=== PATIENT | male | born 1960 | race Caucasian/White ===

== ENCOUNTER 2019-02-10 11:37 | Emergency (ER) | payer SELFPAY ==
[2019-02-10 11:57] VITALS: BP 134/76; PULSE 81
--- NOTE | 2019-02-10 12:01 | EDM.PDOC ---
ED HPI GENERAL MEDICAL PROBLEM - General Chief Complaint: Skin Complaint Stated Complaint: RIGHT HAND INFECTION Time Seen by Provider: 02/10/19 11:55 Source of Information: Reports: Patient, Old Records, RN Notes Reviewed History Limitations: Reports: No Limitations - History of Present Illness INITIAL COMMENTS - FREE TEXT/NARRATIVE: Patient is a 58-year-old male who presents to the ED for the evaluation of a swollen right hand and knuckles. Patient notes that the pain is sharp and stabbing in nature, and any touch to the hand actually hurts him. He notes that the pain radiates to his upper arm, and would rate this at a 10 out of 10. He states he has a history of a MRSA infection to his knee that started just like this. Patient states that over the last 24 hours the pain has increased. Clinically he has a mild fever at 100.4F, he is complaining of being chilled, having some nausea but no vomiting or diarrhea. He denies any chest pain or shortness of breath. 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 Patient notes that he has a history of hepatitis C, some chronic back pain issues, and shoulder surgeries. He denies any med allergies. Right Hand Pain Score (Numeric/FACES): 10 - Related Data Allergies Allergy/AdvReac Type Severity Reaction Status Date / Time No Known Allergies Allergy Verified 02/10/19 11:57 Home Meds: Home Meds oxyCODONE HCl/Acetaminophen [Percocet 5-325 mg Tablet] 1 each PO TID PRN #12 tablet 11/16/15 [Rx] Acetaminophen/oxyCODONE [Percocet 325-5 MG] 1 each PO Q6H PRN #12 tab 02/10/19 [ Rx] predniSONE 20 mg PO ASDIRECTED #15 tab 02/10/19 [Rx] Past Medical History HEENT History: Reports: Hard of Hearing, Impaired Vision Musculoskeletal History: Reports: Arthritis Psychiatric History: Reports: Addiction Hematologic History: Reports: Other (See Below) Other Hematologic History: pt states that he has Hep C - Infectious Disease History Infectious Disease History: Reports: Hepatitis C - Past Surgical History GI Surgical History: Reports: Hernia Repair/Other Musculoskeletal Surgical History: Reports: Shoulder Surgery Social & Family History - Tobacco Use Smoking Status *Q: Current Every Day Smoker Years of Tobacco use: 35 Packs/Tins Daily: 1 - Caffeine Use Caffeine Use: Reports: Coffee - Alcohol Use Days Per Week of Alcohol Use: 2 Number of Drinks Per Day: 2 Total Drinks Per Week: 4 - Recreational Drug Use Recreational Drug Use: No ED ROS GENERAL - Review of Systems Review Of Systems: See Below Constitutional: Reports: Fever, Chills HEENT: Reports: No Symptoms Respiratory: Denies: Shortness of Breath, Cough Cardiovascular: Denies: Chest Pain Endocrine: Reports: No Symptoms GI/Abdominal: Reports: No Symptoms : Reports: No Symptoms Musculoskeletal: Reports: Hand Pain (bilateral, but right hand hurts worse, swelling noted to bilteral MCPs) Skin: Denies: Wound Neurological: Denies: Numbness, Tingling Psychiatric: Reports: No Symptoms Hematologic/Lymphatic: Reports: No Symptoms Immunologic: Reports: No Symptoms ED EXAM, SKIN/RASH Exam: See Below Exam Limited By: No Limitations General Appearance: Alert, WD/WN, No Apparent Distress Eye Exam: Bilateral Eye: EOMI, Normal Inspection, PERRL Throat/Mouth: Normal Inspection, Normal Lips, Normal Teeth, Normal Gums, Normal Oropharynx, Normal Voice, No Airway Compromise Head: Atraumatic, Normocephalic Respiratory/Chest: No Respiratory Distress, Lungs Clear, Normal Breath Sounds, No Accessory Muscle Use, Chest Non-Tender Cardiovascular: Normal Peripheral Pulses, Regular Rate, Rhythm, No Murmur GI/Abdominal: Normal Bowel Sounds, Soft, Non-Tender, No Distention, No Mass Extremities: Normal Inspection (Hands are visibly soiled with dark debris, there is some swelling appreciated to the MCPs of bilateral hands, however no obvious redness noted to suggest cellulitis. Patient's hand is tender to touch , even the lightest touch provides him with pain), Normal Capillary Refill, Limited Range of Motion (d/t pain) Neurological: Alert, Oriented, Normal Cognition, No Motor/Sensory Deficits Psychiatric: Normal Affect, Normal Mood Skin: Warm, Dry, Intact, Normal Color, No Rash Course - Vital Signs Last Recorded V/S: Last Vital Signs Temp 100.4 F 02/10/19 11:52 Pulse 81 02/10/19 11:52 Resp 16 02/10/19 11:52 BP 134/76 02/10/19 11:52 Pulse Ox 93 L 02/10/19 11:52 - Orders/Labs/Meds Orders: Active Orders 24 hr Category Date Time Status Peripheral IV Care [RC] . DIRECTED Care 02/10/19 12:12 Active Sodium Chloride 0.9% [Normal Saline] 1,000 ml Med 02/10/19 12:25 Active IV ONETIME Sodium Chloride 0.9% [Saline Flush] Med 02/10/19 12:11 Active 10 ml FLUSH ASDIRECTED PRN Peripheral IV Insertion Adult [OM.PC] Stat Oth 02/10/19 12:11 Ordered Medication Orders Sodium Chloride (Normal Saline) 1,000 mls @ 500 mls/hr IV ONETIME ONE Stop: 02/10/19 14:24 Last Admin: 02/10/19 12:31 Dose: 500 mls/hr Sodium Chloride (Saline Flush) 10 ml FLUSH ASDIRECTED PRN PRN Reason: Keep Vein Open Last Admin: 02/10/19 12:23 Dose: 10 ml Labs: Laboratory Tests 02/10/19 02/10/19 02/10/19 Range/Units 12:20 12:20 12:20 WBC 7.95 (4.23-9.07) K/mm3 RBC 4.30 L (4.63-6.08) M/mm3 Hgb 14.2 (13.7-17.5) gm/dl Hct 41.2 (40.1-51.0) % MCV 95.8 H (79.0-92.2) fl MCH 33.0 H (25.7-32.2) pg MCHC 34.5 (32.2-35.5) g/dl RDW Std Deviation 42.3 (35.1-43.9) fL Plt Count 128 L (163-337) K/mm3 MPV 10.3 (9.4-12.3) fl Neutrophils % (Manual) 74 H (40-60) % Band Neutrophils % 0 (0-10) % Lymphocytes % (Manual) 12 L (20-40) % Atypical Lymphs % 0 % Monocytes % (Manual) 10 (2-10) % Eosinophils % (Manual) 3 (0.8-7.0) % Basophils % (Manual) 1 (0.2-1.2) Platelet Estimate Adequate RBC Morph Comment Normal ESR 36 H (0-15) mm/hr Sodium 131 L (136-145) mEq/L Potassium 4.1 (3.5-5.1) mEq/L Chloride 98 (98-107) mEq/L Carbon Dioxide 25 (21-32) mEq/L Anion Gap 12.1 (5-15) BUN 14 (7-18) mg/dL Creatinine 0.8 (0.7-1.3) mg/dL Est Cr Clr Drug Dosing 103.92 mL/min Estimated GFR (MDRD) > 60 (>60) mL/min BUN/Creatinine Ratio 17.5 (14-18) Glucose 140 H (74-106) mg/dL Uric Acid 5.1 (3.5-7.2) mg/dL Calcium 8.3 L (8.5-10.1) mg/dL Total Bilirubin 3.9 H (0.2-1.0) mg/dL AST 238 H (15-37) U/L ALT 141 H (16-63) U/L Alkaline Phosphatase 214 H (46-116) U/L C-Reactive Protein 4.9 H* (<1.0) mg/dL Total Protein 8.4 H (6.4-8.2) g/dl Albumin 2.7 L (3.4-5.0) g/dl Globulin 5.7 gm/dL Albumin/Globulin Ratio 0.5 L (1-2) Meds: Medications Generic Name Dose Route Start Last Admin Trade Name Freq PRN Reason Stop Dose Admin Sodium Chloride 1,000 mls @ 500 mls/hr 02/10/19 12:25 02/10/19 12:31 Normal Saline IV 02/10/19 14:24 500 mls/hr ONETIME ONE Administration Sodium Chloride 10 ml 02/10/19 12:11 02/10/19 12:23 Saline Flush FLUSH 10 ml ASDIRECTED PRN Administration Keep Vein Open Discontinued Medications Generic Name Dose Route Start Last Admin Trade Name Freq PRN Reason Stop Dose Admin Hydromorphone HCl 0.5 mg 02/10/19 12:12 02/10/19 12:19 Dilaudid IVPUSH 02/10/19 12:13 0.5 mg ONETIME ONE Administration Hydromorphone HCl 0.5 mg 02/10/19 13:11 02/10/19 13:16 Dilaudid IVPUSH 02/10/19 13:12 0.5 mg ONETIME ONE Administration Ondansetron HCl 4 mg 02/10/19 12:12 02/10/19 12:19 Zofran IVPUSH 02/10/19 12:13 4 mg ONETIME ONE Administration - Re-Assessments/Exams Free Text/Narrative Re-Assessment/Exam: 02/10/19 12:24 Patient presents to the ED for evaluation of right hand pain. Did order labs to include CBC, CMP, CRP, sedimentation rate, uric Acid, 0.5 Mg IV Dilaudid, 4 Mg IV Zofran, and Some IV Fluids for Initial Management. 02/10/19 13:50 Labs are done, and demonstrate a sedimentation rate increased at 36, CRP increased at 4.9. Liver enzymes are all up, but he has a history of hep C. White blood cell counts within normal limits, no sign of any sort of acute bacterial infection at this time. Uric acid was within normal limits, however due to the inflammatory nature of his labs, and the pain with palpation to his hands, is likely that the gentleman is suffering from gout, I will provide prednisone prescription, and have him follow up with primary care physician sometime this week. 02/10/19 13:56 Patient was reassessed at bedside, states he has not had much relief from the 1 mg total of Dilaudid he has gotten. Will order Percocet to be given, as he states this is help with the pain in the past, he will receive a 1 time dose of dexamethasone as well IV for initial management. Departure - Departure Time of Disposition: 13:59 Disposition: Home, Self-Care 01 Condition: Fair Clinical Impression: Gout attack Qualifiers: Gout site: hand Gout etiology: unspecified cause Laterality: right Qualified Code(s): M10.9 - Gout, unspecified - Discharge Information *PRESCRIPTION DRUG MONITORING PROGRAM REVIEWED*: No *COPY OF PRESCRIPTION DRUG MONITORING REPORT IN PATIENT ZHANNA: No Instructions: Low-Purine Eating Plan, Gout, [id number] Referrals: PCP,None [Primary Care Provider] - Forms: ED Department Discharge Additional Instructions: You were evaluated in the ER today regarding your increased right hand pain. Your laboratory evaluation did not show any sign of a bacterial infection, however your markers for inflammation were elevated. This is suggestive of more of a gout-type illness in nature. You treated with some IV pain medications, some IV fluids, some IV steroids in the ED. You have been prescribed oxycodone 5/325, please take one tab every 6 hours as needed for further pain relief, do not take while driving, and please try to take as few of these as possible, as these medications can be very addictive. You were given a prescription for prednisone, this is a steroid, to help reduce the inflammation in the hand. These prescriptions were electronically prescribed to the [facility] pharmacy located near [facility] in [place], [place] at [address] This pharmacy is only open from 12 to 4 PM today, you will need to go to the pharmacy and obtain these medications during that time window. Opioid pain medications can provide quite a bit of constipation, recommend you start taking a stool softener and increase your fluid intake to help soften your bowels during this time. Recommend that when you get back home to [place], you follow up with your primary care physician for recheck and reevaluation. Please return to the ED if your symptoms should change or worsen. - My Orders Last 24 Hours: My Active Orders 02/10/19 12:11 Sodium Chloride 0.9% [Saline Flush] 10 ml FLUSH ASDIRECTED PRN Peripheral IV Insertion Adult [OM.PC] Stat 02/10/19 12:12 Peripheral IV Care [RC] . DIRECTED 02/10/19 12:25 Sodium Chloride 0.9% [Normal Saline] 1,000 ml IV ONETIME - Assessment/Plan Last 24 Hours: My Active Orders 02/10/19 12:11 Sodium Chloride 0.9% [Saline Flush] 10 ml FLUSH ASDIRECTED PRN Peripheral IV Insertion Adult [OM.PC] Stat 02/10/19 12:12 Peripheral IV Care [RC] . DIRECTED 02/10/19 12:25 Sodium Chloride 0.9% [Normal Saline] 1,000 ml IV ONETIME
[2019-02-10] MEDS ORDERED: Sodium Chloride 0.9% 10 ML Syringe FLUSH PRN (12:11)
[2019-02-10] MEDS ORDERED: Ondansetron 4 MG/2 ML SDV IVPUSH ONE (12:12)
[2019-02-10] MEDS ORDERED: HYDROmorphone 0.5 MG/0.5 ML Syringe IVPUSH ONE ×2 (12:12→13:11)
[2019-02-10] MEDS ORDERED: Sodium Chloride 0.9% 1,000 ML IV ONE (12:25)
[2019-02-10] MEDS ORDERED: Acetaminophen/oxyCODONE 325-5 MG Tab PO ONE (13:57)
[2019-02-10] MEDS ORDERED: Dexamethasone 10 MG/ML SDV IM ONE (13:57)
== END 2019-02-10 14:21 | disposition home or self-care (01) ==
LOC: JD.ED 11:37
DX: M10.041 Idiopathic gout, right hand (principal); F17.210 Nicotine dependence, cigarettes, uncomplicated
CPT/HCPCS: 36415; 80053; 84550; 85007; 85027; 85652; 86140; 96361; 96372; 96374; 96375; 96376; 99283; A9270; J1100; J1170; J2405; J7040